=== PATIENT | female | born 1960 | race Caucasian/White ===

== ENCOUNTER → 2016-11-16 | Outpatient (CLI) | payer OTHER ==
[~2016-11-16] MED LIST: ACTO45TA OR; ALPH0.1S OD; ASPI81TA83 OR; BENA10TA2 OR; BENAZEPRIL OR; EFFE150C OR; GLUC500T PO; HYDR10TA2 OR; HYDR25TA6 OR; INSULANT SC; MELOPOW PO; PENN1SOL2 TOP; PERC4TAB PO; SIMV20TA2 OR; SKEL800T5 OR; SOMA350T PO; TIZA2TA PO; [UNRECOGNIZED DRUG - OTHER]; [UNRECOGNIZED DRUG - OTHER] OD
--- NOTE | 2016-11-16 15:19 | REPMRS ---
Patient History The patient states she has not had a clinical breast exam in over a year. Family history of breast cancer in sister at age 35 and breast cancer in maternal aunt at age 50. Patient states her last mammo was done at [facility] Digital Mammo Screening Bilat: November 16, 2016 - Exam #: [id number] Bilateral CC and MLO view(s) were taken. Technologist: Helene Salgado, Technologist FINDINGS: There are scattered fibroglandular densities. There has been no change in the appearance of the mammogram from the prior studies. There is a mild amount of residual fibroglandular tissue which is fairly symmetric. There is no interval development of dominant mass, architectural distortion, or clustered microcalcification suggestive of malignancy. ASSESSMENT: BI-RADS/ACR category 1 mammogram. Negative. Recommendation Routine screening mammogram in 1 year (for women over age 40). This mammogram was interpreted with the aid of an FDA-approved computer-aided dectection system. Electronically Signed By: Kyle Barnes MD 11/16/16 [id number]
== END ==
LOC: M RAD 14:14
PROVIDERS: ATTEND Family Medicine
DX: Z12.31 Encounter for screening mammogram for malignant neoplasm of breast (principal)

== ENCOUNTER → 2018-02-01 | Outpatient (CLI) | payer OTHER | LOC: M RAD 07:54 | DX: E83.119 Hemochromatosis, unspecified (principal) | CPT/HCPCS: 76700 ==

== ENCOUNTER → 2019-04-26 | Outpatient (CLI) | payer OTHER ==
[~2019-04-26] MED LIST changes: +BENA1TAB24 PO; +BRIM1OPD OS; +FOLI800C PO; +JANU25TA PO; +LIPI20TA PO; +METF-877 PO; -PERC4TAB PO; +PERCOCET PO; +VITA-122 PO; +VITA250T50 PO; +XALA0.007 OP
--- NOTE | 2019-04-27 15:03 | REPMRS ---
Patient History The patient states she has not had a clinical breast exam in over a year. Patient has history of retina blastomi at age 8. Family history of breast cancer at age 35 in sister, breast cancer at age 50 in maternal aunt. Digital Mammo Screening Bilat: April 26, 2019 - Exam #: [id number] Bilateral CC and MLO view(s) were taken. Technologist: Debby Heath Technologist Prior study comparison: February 09, 2018, bilateral digital woman screen mammo, performed at [facility]. November 16, 2016, bilateral digital mammo screening bilat performed at [facility]. October 10, 2013, bilateral digital woman screen mammo, performed at [facility]. FINDINGS: There are scattered fibroglandular densities. There has been no change in the appearance of the mammogram from the prior studies. There is a mild amount of scattered fibroglandular density which is fairly symmetric. There is no interval development of dominant mass, architectural distortion, or grouped microcalcification suggestive of malignancy. Assessment: BI-RADS/ACR category 1 mammogram. Negative Mammogram. Recommendation Routine screening mammogram of both breasts in 1 year (for women over age 40). This patient's Lifetime Breast Cancer Risk is estimated at 16.7 %. This mammogram was interpreted with the aid of an FDA-approved computer-aided dectection system. Electronically Signed By: Sergio Kirby MD 04/27/19 [id number]
== END ==
LOC: M RAD 10:23
PROVIDERS: ATTEND Family Medicine
DX: Z12.31 Encounter for screening mammogram for malignant neoplasm of breast (principal)

== ENCOUNTER → 2021-03-05 | Outpatient (CLI) | payer OTHER ==
[~2021-03-05] MED LIST changes: -VITA250T50 PO; +VITA250T7 PO
--- NOTE | 2021-03-05 11:03 | REPMRS ---
Patient History The patient states she has not had a clinical breast exam in over a year. Family history of breast cancer at age 35 in sister, breast cancer at age 50 in maternal aunt. ]Tomosynthesis is performed. Volpara breast density is b. [facility] lifetime risk of breast cancer 16.2%. Patient states no breast complaints today. Patient has signed MRS History Sheet. Digital Woman Screen Mammo: March 05, 2021 - Exam #: [id number] Bilateral CC and MLO view(s) were taken. Technologist: Debby Heath, Technologist Prior study comparison: April 26, 2019, bilateral digital mammo screening bilat, performed at [facility]. February 09, 2018, bilateral digital woman screen mammo, performed at [facility]. FINDINGS: There are scattered fibroglandular densities. There has been no change in the appearance of the mammogram from the prior studies. There is a mild amount of residual fibroglandular tissue which is fairly symmetric. There is no interval development of dominant mass, architectural distortion, or clustered microcalcification suggestive of malignancy. Assessment: BI-RADS/ACR category 1 mammogram. Negative Mammogram. Recommendation Routine screening mammogram in 1 year (for women over age 40). This mammogram was interpreted with the aid of an FDA-approved computer-aided dectection system. Electronically Signed By: Kyle Barnes MD 03/05/21 [id number]
== END ==
LOC: M WHC 09:55
PROVIDERS: ATTEND Family Medicine
DX: Z12.31 Encounter for screening mammogram for malignant neoplasm of breast (principal)

== ENCOUNTER → 2021-12-09 | Outpatient (CLI) | payer OTHER | LOC: M PLAIMG 13:36 | PROVIDERS: ATTEND Physician Assistant | DX: M94.222 Chondromalacia, left elbow (principal) ==